=== PATIENT | female | born 1990 | race African-American/Black ===

== ENCOUNTER 2017-05-14 21:32 | Emergency (ER) | payer OTHER ==
--- NOTE | ~2017-05-14 | CR172 ---
[facility] A Service of [facility] RADIOLOGY TEXT RESULTS PATIENT: APRIL DOSS LOCATION: [facility] : 88 UNIT #: [id number] AGE: [address]: GEOVANNY PRINCE APRN SEX: F ORDER DR: [id number] [place], [place] [address] [id number] MR#: [id number] Acc #: [id number] NAME: APRIL DOSS : 1990 SEX: F STUDY DATE/TIME: 05/14/2017 23:55 UNIT: [facility] ROOM: STUDY DESCRIPTION: CR Knee 3 Views Lt Attending Physician: Geovanny Prince Aprn Ordering Physician: Geovanny Prince Aprn Primary Care Physician: James Kessler M.D. MEDICAL IMAGING REPORT This report is preliminary unless electronic signature is present EXAM Three views left knee. DATE 05/14/2017 HISTORY Left knee pain for 1 day after falling. COMPARISON Bilateral standing knee radiographs 11/11/2016. FINDINGS AP and lateral projection of the knee shows smooth articular anatomy without indication of fracture or dislocation at the major weight-bearing surface of the knee. There is no indication of radiopaque foreign body about the knee surface or joint effusion. IMPRESSION Normal 3 views of the left knee. Dictated by... Debra Arellano M.D. THIS IS AN ELECTRONICALLY VERIFIED REPORT Debra Arellano M.D. at 05/15/2017 9:49 PM [facility] TD: 05/15/2017 01:58 JOB #: [id number] MEDICAL IMAGING REPORT [facility] A Service of [facility] RADIOLOGY TEXT RESULTS PATIENT: APRIL DOSS LOCATION: [place] : 88 UNIT #: [id number] AGE: [address]: GEOVANNY PRINCE APRN SEX: F ORDER DR: Page 1 of 1 COPY
== END 2017-05-15 01:43 | disposition home or self-care (01) ==
LOC: CFTX 21:32 → CED 21:32 → CFTX 23:25
DX: S83.92XA Sprain of unspecified site of left knee, initial encounter (principal); W01.0XXA Fall on same level from slipping, tripping and stumbling without subsequent striking against object, initial encounter; Y92.9 Unspecified place or not applicable; Z88.2 Allergy status to sulfonamides; Z88.5 Allergy status to narcotic agent; Z88.8 Allergy status to other drugs, medicaments and biological substances
CPT/HCPCS: 29505; 73562; 99283